=== PATIENT | female | born 1995 | race Caucasian/White ===

== ENCOUNTER 2019-01-07 21:52 | Emergency (ER) | payer BC ==
[~2019-01-07] VITALS: Ht 152.4 cm; Wt 49.9 kg
[2019-01-07 22:11] VITALS: BP 108/73
--- NOTE | 2019-01-07 22:11 | NUR ---
ED Nurse Note: Patient walked in to ER due to laceration on right (knuckle) hand. As per patient, a glass shattered while she's cleaning. Alert and oriented x4, verbally responsive. breathing even and unlabored. Afebrile. VSS. Family at bedside.
--- NOTE | 2019-01-07 23:01 | Emergency Room Report ---
History of Present Illness General Chief Complaint: Laceration Source: Patient Present Illness HPI This is a 23-year-old female who is right-hand dominant. She presents with laceration to her hand. This occurred just prior to arrival. She was washing dishes and 1 of the glass cup broke and sustained a laceration to her right hand. No active bleeding. Tetanus within 10 years. Denies any other injury. Allergies: Coded Allergies: No Known Allergies (Unverified , 01/07/19) Patient History Past Medical History: see triage record, old chart reviewed Past Surgical History: none Pertinent Family History: none Social History: Denies: smoking Last Menstrual Period: 12/31/18 Now: No Immunizations: UTD Reviewed Nursing Documentation: PMH: Agreed; PSxH: Agreed Nursing Documentation-PMH Past Medical History: No Stated History Review of Systems Eye: Denies: eye pain, blurred vision ENT: Denies: ear pain, nose congestion, throat swelling Respiratory: Denies: cough, shortness of breath Cardiovascular: Denies: chest pain, palpitations Gastrointestinal: Denies: abdominal pain, diarrhea, nausea, vomiting Musculoskeletal: Denies: back pain, joint pain Skin: Denies: rash Neurological: Denies: headache, numbness Endocrine: Denies: increased thirst, increased urine Hematologic/Lymphatic: Denies: easy bruising All Other Systems: negative except mentioned in HPI Physical Exam Vital Signs Date Time Temp Pulse Resp B/P (MAP) Pulse Ox O2 Delivery O2 Flow Rate FiO2 01/07/19 22:08 97.5 63 18 108/73 (85) 99 Room Air Vitals normal Sp02 EP Interpretation: reviewed, normal General Appearance: well appearing, no apparent distress, alert Head: normocephalic, atraumatic Eyes: bilateral eye PERRL, bilateral eye EOMI ENT: hearing grossly normal, normal pharynx Neck: full range of motion, supple, no meningismus Respiratory: chest non-tender, lungs clear, normal breath sounds Cardiovascular #1: regular rate, rhythm, no murmur Gastrointestinal: normal bowel sounds, non tender, no mass, no organomegaly, no bruit, non-distended Musculoskeletal: back normal, gait/station normal, normal range of motion, other - Right hand: In the webspace between the second and third knuckle, there is a 1 cm laceration. No tendon laceration. No foreign body. Psychiatric: mood/affect normal Procedures Laceration/Wound Repair Laceration/Wound Repair : Consent: Verbal Wound Location: upper extremity Wound's Depth, Shape: superficial Wound Length (cm): 1 Wound Explored: clean Irrigated w/ Saline (ccs): 1000 Betadine Prep?: Yes Anesthesia: 1% Lidocaine Volume Anesthetic (ccs): 2 Wound Repaired With: sutures Suture Size/Type: 6:0, proline Number of Sutures: 2 Patient Tolerated: Well Complications: None Medical Decision Making Diagnostic Impression: Primary Impression: Hand laceration Qualified Codes: S61.411A - Laceration without foreign body of right hand, initial encounter ER Course Patient presents with a hand laceration. No foreign body. No tendon laceration. Will discharge home. Last Vital Signs Date Time Temp Pulse Resp B/P (MAP) Pulse Ox O2 Delivery O2 Flow Rate FiO2 01/07/19 22:11 97.5 70 18 108/73 99 Room Air Status: improved Disposition: HOME, SELF-CARE Condition: Stable Referrals: NOT CHOSEN [facility]/MD,REFERRING (PCP) Patient Instructions: Laceration Care, Adult Additional Instructions: Follow up with your doctor in 10 to 14 days for recheck. Return if symptoms worsen. Suture out in 10 to 14 days. Danny Segura MD Jan 07, 2019 23:01
[2019-01-07 23:03] VITALS: BP 108/73
--- NOTE | 2019-01-07 23:03 | NUR ---
ED Nurse Note: Pt cleared by ERMD for discharge. DC instructions was given and explained to pt and verbalized understanding of teachings. All medical deviecs such as ID band removed. Pt is AAO x4, ambulatory and left with all personal belongings.
== END 2019-01-07 23:03 | disposition home or self-care (01) ==
LOC: EMR 22:24
DX: S61.411A Laceration without foreign body of right hand, initial encounter (principal); W45.8XXA Other foreign body or object entering through skin, initial encounter; Y93.G1 Activity, food preparation and clean up; Y92.9 Unspecified place or not applicable
CPT/HCPCS: 99283

== ENCOUNTER 2019-06-02 22:42 | Emergency (ER) | payer BC ==
[~2019-06-02] VITALS: Ht 172.7 cm; Wt 52.2 kg
--- NOTE | 2019-06-02 22:55 | NUR ---
ED Nurse Note: PT WALKED IN TO ED ACCOMPANIED BY FRIEND C/O WEAKNESS AND SOB STARTED TODAY. PER PATIENT, HER DR TOLD HER SHE HAS A VIRAL INFECTON. PT DOES NOT PRESENT WITH FEVER, O2 SAT AT 99% RA ON TRIAGE. VSGladis, BRUNILDA. ERMD AT BEDSIDE. WILL CONTINUE TO MONITOR PATIENT.
--- NOTE | 2019-06-02 23:10 | NUR ---
ED Nurse Note: iv established on left ac with 20g. blood drawn and sent to lab. line patent and intact.
[2019-06-02] MEDS ORDERED: Ketorolac 30mg Inj IV ONE (23:15)
[2019-06-02 23:25] VITALS: BP 133/75
--- NOTE | 2019-06-02 23:30 | NUR ---
ED Nurse Note: XR AT BEDSIDE.
--- NOTE | 2019-06-02 23:37 | Emergency Room Report ---
History of Present Illness General Chief Complaint: Upper Respiratory Illness Source: Patient Present Illness HPI Patient started feeling ill on Friday. She has been having intermittent fever since Friday. She is seen by her doctor and a flu swab was done which was negative. She had influenza vaccination. She has been having body aches. She took Tylenol approximately 4 hours ago. She was studying and went to go to sleep and developed dyspnea and chest discomfort. She also has nausea. There is been no vomiting. The patient took a dose of trazodone which he takes to help herself sleep. Last menses Friday. No chills, nausea, dysuria, abdominal pain, rashes, depression, visual changes, headache. 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 Now: No Reviewed Nursing Documentation: PMH: Agreed; PSxH: Agreed Nursing Documentation-PMH Past Medical History: No Stated History Review of Systems All Other Systems: negative except mentioned in HPI Physical Exam Vital Signs Date Time Temp Pulse Resp B/P (MAP) Pulse Ox O2 Delivery O2 Flow Rate FiO2 06/02/19 22:50 98.4 67 20 136/86 (103) 98 Room Air Sp02 EP Interpretation: reviewed, normal General Appearance: well appearing, no apparent distress, GCS 15 Head: normocephalic Eyes: bilateral eye normal inspection, bilateral eye PERRL, bilateral eye EOMI ENT: no angioedema, moist mucus membranes, pharyngeal erythema Neck: full range of motion, supple Respiratory: chest non-tender, lungs clear, normal breath sounds Cardiovascular #1: regular rate, rhythm Cardiovascular #2: 2+ radial (R) Gastrointestinal: normal inspection, normal bowel sounds, non tender, no mass, non-distended Genitourinary: no CVA tenderness Musculoskeletal: back normal, normal range of motion, gait/station normal Neurologic: alert, oriented x3, grossly normal Psychiatric: anxious Skin: no rash, warm/dry Medical Decision Making Diagnostic Impression: Primary Impression: Viral syndrome Additional Impressions: Dyspnea Qualified Codes: R06.00 - Dyspnea, unspecified Dehydration ER Course Patient presents with several days of upper respiratory symptoms and then dyspnea and chest discomfort tonight. Differential includes viral syndrome, influenza, pericarditis, pulmonary embolus, dehydration, hyperventilation, adverse reaction to trazodone amongst others. Evaluation with EKG, chest x-ray and labs. Likelihood of pulmonary embolus is low due to history and vital signs. IV hydration indicated. IV Toradol administered. EKG without injury or pericarditis. Chest x-ray clear. Labs unremarkable. Influenza negative. Patient still with nausea and Zofran administered. Patient improved with treatment. Discussed findings with patient. Discussed treatment plan. Patient stable for outpatient observation and treatment. Laboratory Tests Test 06/02/19 23:10 06/02/19 23:25 White Blood Count 6.6 K/UL (4.8-10.8) Red Blood Count 4.26 M/UL (4.20-5.40) Hemoglobin 13.6 G/DL (12.0-16.0) Hematocrit 38.2 % (37.0-47.0) Mean Corpuscular Volume 90 FL (80-99) Mean Corpuscular Hemoglobin 32.0 PG (27.0-31.0) H Mean Corpuscular Hemoglobin Concent 35.7 G/DL (32.0-36.0) Red Cell Distribution Width 12.6 % (11.6-14.8) Platelet Count 236 K/UL (150-450) Mean Platelet Volume 8.4 FL (6.5-10.1) Neutrophils (%) (Auto) 41.6 % (45.0-75.0) L Lymphocytes (%) (Auto) 45.8 % (20.0-45.0) H Monocytes (%) (Auto) 9.6 % (1.0-10.0) Eosinophils (%) (Auto) 1.5 % (0.0-3.0) Basophils (%) (Auto) 1.5 % (0.0-2.0) Sodium Level 140 MMOL/L (136-145) Potassium Level 3.5 MMOL/L (3.5-5.1) Chloride Level 103 MMOL/L (98-107) Carbon Dioxide Level 26 MMOL/L (21-32) Anion Gap 11 mmol/L (5-15) Blood Urea Nitrogen 14 mg/dL (7-18) Creatinine 0.8 MG/DL (0.55-1.30) Estimate Glomerular Filtration Rate > 60 mL/min (>60) Glucose Level 103 MG/DL (74-106) Calcium Level 9.1 MG/DL (8.5-10.1) Total Bilirubin 0.3 MG/DL (0.2-1.0) Aspartate Amino Transferase (AST) 12 U/L (15-37) L Alanine Aminotransferase (ALT) 23 U/L (12-78) Alkaline Phosphatase 67 U/L (46-116) Total Protein 7.7 G/DL (6.4-8.2) Albumin 3.9 G/DL (3.4-5.0) Globulin 3.8 g/dL Albumin/Globulin Ratio 1.0 (1.0-2.7) Lipase 196 U/L (73-393) Urine Color Pale yellow Urine Appearance Clear Urine pH 7 (4.5-8.0) Urine Specific [place] 1.010 (1.005-1.035) Urine Protein Negative (NEGATIVE) Urine Glucose (UA) Negative (NEGATIVE) Urine Ketones Negative (NEGATIVE) Urine Blood 4+ (NEGATIVE) H Urine Nitrite Negative (NEGATIVE) Urine Bilirubin Negative (NEGATIVE) Urine Urobilinogen Normal MG/DL (0.0-1.0) Urine Leukocyte Esterase Negative (NEGATIVE) Urine RBC 2-4 /HPF (0 - 2) H Urine WBC 0-2 /HPF (0 - 2) Urine Squamous Epithelial Cells Moderate /LPF (NONE/OCC) H Urine Bacteria Few /HPF (NONE) Urine HCG, Qualitative Negative (NEGATIVE) Microbiology Date/Time Source Procedure Growth Status 06/02/19 23:10 Nasal Nares - Final Complete 06/02/19 23:10 Nasal Nares - Final Complete EKG Diagnostic Results Rate: normal Rhythm: NSR ST Segments: no acute changes - Incomplete right bundle branch block Rhythm Strip Diag. Results EP Interpretation: yes Rhythm: NSR, no PVC's, no ectopy Chest X-Ray Diagnostic Results Chest X-Ray Diagnostic Results : Chest X-Ray Ordered: Yes # of Views/Limited/Complete: 1 View Indication: Other EP Interpretation: Yes Interpretation: no consolidation, no effusion, no pneumothorax Impression: No acute disease Electronically Signed by: Electronically signed by Jay Langley MD Last Vital Signs Date Time Temp Pulse Resp B/P (MAP) Pulse Ox O2 Delivery O2 Flow Rate FiO2 06/03/19 01:05 97.8 68 16 127/66 98 Room Air Status: improved Disposition: HOME, SELF-CARE Condition: Improved Scripts Ondansetron Odt* (ZOFRAN ODT*) 4 Mg Tab.rapdis 4 MG BC EVERY 8 HOURS PRN for Nausea & Vomiting, #4 TAB 1 Refill Prov: Jay Langley MD 06/03/19 Referrals: NOT CHOSEN [facility]/,REFERRING (PCP) Jay Langley MD Jun 02, 2019 23:37
--- NOTE | 2019-06-02 23:40 | NUR ---
ED Nurse Note: URINE COLLECTED AND SENT TO LAB
[2019-06-02 23:42] LABS: APPEARANCE,URINE CLEAR; BILIRUBIN, URINE NEGATIVE (NEGATIVE); COLOR,URINE PALE YELLOW; GLUCOSE, URINE (UA) NEGATIVE (NEGATIVE); KETONES,URINE NEGATIVE (NEGATIVE); LEUKOCYTE ESTERASE ,URINE NEGATIVE (NEGATIVE); NITRITE,URINE NEGATIVE (NEGATIVE); PH,URINE 7 (4.5-8.0); PROTEIN,URINE NEGATIVE (NEGATIVE); UROBILINOGEN,URINE NORMAL MG/DL (0.0-1.0)
[2019-06-02 23:45] LABS: ANION GAP 11 mmol/L (5-15); BLOOD UREA NITROGEN 14 mg/dL (7-18); CALCIUM 9.1 MG/DL (8.5-10.1); CARBON DIOXIDE 26 MMOL/L (21-32); CHLORIDE 103 MMOL/L (98-107); CREATININE 0.8 MG/DL (0.55-1.30); POTASSIUM 3.5 MMOL/L (3.5-5.1); SODIUM 140 MMOL/L (136-145)
[2019-06-02 23:50] LABS: ALANINE AMINOTRANSFERASE 23 U/L (12-78); ALBUMIN 3.9 G/DL (3.4-5.0); ALKALINE PHOSPHATASE 67 U/L (46-116); ASPARTATE AMINO TRANSFERASE 12 U/L (15-37); BILIRUBIN,TOTAL 0.3 MG/DL (0.2-1.0)
[2019-06-03 00:01] LABS: BASOPHILS % (AUTO) 1.5 % (0.0-2.0); EOSINOPHILS % (AUTO) 1.5 % (0.0-3.0); HEMATOCRIT 38.2 % (37.0-47.0); HEMOGLOBIN 13.6 G/DL (12.0-16.0); LYMPHOCYTES % (AUTO) 45.8 % (20.0-45.0); MEAN CORPUSCULAR VOLUME 90 FL (80-99); MONOCYTES % (AUTO) 9.6 % (1.0-10.0); NEUTROPHILS % (AUTO) 41.6 % (45.0-75.0); PLATELET COUNT 236 K/UL (150-450); RED BLOOD COUNT 4.26 M/UL (4.20-5.40); RED CELL DISTRIBUTION WIDTH 12.6 % (11.6-14.8); WHITE BLOOD COUNT 6.6 K/UL (4.8-10.8)
--- NOTE | 2019-06-03 00:10 | NUR ---
ED Nurse Note: PATIENT C/O NAUSEA. ERMD NOTIFIED. WILL CARRY OUT ORDER.
[2019-06-03] MEDS ORDERED: ONDANSETRON ODT4 MG BC (00:50)
[2019-06-03] MEDS ORDERED: TRAZODONE HCL150 MG ORAL (00:57)
[2019-06-03 01:05] VITALS: BP 127/66
--- NOTE | 2019-06-03 01:05 | NUR ---
ER DISCHARGE NOTE: Patient is cleared to be discharged per ERMD, pt is aox4, on room air, with stable vital signs. pt was given dc and prescription instructions, pt was able to verbalize understanding, pt id band and iv site removed without complications. pt is able to ambulate with steady gait. pt took all belongings.
--- NOTE | 2019-06-03 13:40 | Diagnostic Imaging Report ---
Indication: Dyspnea Comparison: None A single view chest radiograph was obtained. Findings: Cardiomediastinal appearance is within normal limits for age. The lungs are clear. Pulmonary vascularity is appropriate. The diaphragmatic contour is smooth and costophrenic angles are sharp. No pleural effusions are identified. The bones are unremarkable. Impression: No acute findings
== END 2019-06-03 01:05 | disposition home or self-care (01) ==
LOC: EMR 22:54
DX: B34.9 Viral infection, unspecified (principal); R06.00 Dyspnea, unspecified; E86.0 Dehydration
CPT/HCPCS: 36415; 71045; 80053; 81003; 81025; 83690; 85025; 86710; 93005; 96361; 96374; 96375; 96376; 99284; J1885; J2405; J7030